=== PATIENT | female | born 1955 | race Caucasian/White ===

== ENCOUNTER 2017-07-21 09:24 | Outpatient (CLI) | payer MEDICARE, MEDICAID ==
--- NOTE | 2017-07-21 13:26 | RAD ---
BIPHASIC UPPER GI: Date: 07/21/17 HISTORY: Morbid obesity, preoperative clearance. FINDINGS: Swallowing was grossly normal. There was unobstructed flow of contrast through the esophagus and int o the stomach, duodenum, and proximal jejunum. No ulcer, stricture, mass, or diverticulum seen. Ther e is a small hiatal hernia. No GE reflux was demonstrated during Valsalva maneuver. IMPRESSION: Small hiatal hernia. POS: [id number]
== END 2017-07-21 09:25 | disposition home or self-care (01) ==
LOC: RAD 09:24
PROVIDERS: ATTEND Specialist
DX: Z01.818 Encounter for other preprocedural examination (principal); E66.01 Morbid (severe) obesity due to excess calories; K44.9 Diaphragmatic hernia without obstruction or gangrene
CPT/HCPCS: 74247

== ENCOUNTER 2017-07-28 10:55 | Outpatient (CLI) | payer OTHER | END 2017-07-28 10:56 | disposition home or self-care (01) | LOC: DTY/OP 10:55 | PROVIDERS: ATTEND Specialist | DX: Z01.818 Encounter for other preprocedural examination (principal); E66.01 Morbid (severe) obesity due to excess calories | CPT/HCPCS: 97802 ==